=== PATIENT | male | born 1985 | race Two or more races ===

== ENCOUNTER 2020-11-22 14:00 | Emergency (ER) | payer MEDICAID ==
[~2020-11-22] VITALS: Ht 167.6 cm; Wt 59.0 kg
--- NOTE | 2020-11-22 14:06 | NUR ---
DR. BRINK AT BEDSIDE FOR EVAL.
--- NOTE | 2020-11-22 14:08 | NUR ---
PATIENT PROVIDED WITH DRINKING WATER. PATIENT A/OX4, BREATHING EVEN AND UNLABORED, NO SOB NOTED. IN STABLE CONDITION.
--- NOTE | 2020-11-22 14:14 | NUR ---
PATIENT IS INSISTING ON LEAVING. DR. BRINK RE-ASSESSED PATIENT AND OK'D THE PATIENT TO LEAVE. PATIENT IS VERBALLY DISCHARGED BY ER MD. PATIENT REFUSED TO SIGN ANY DISCHARGE PAPERWORK AND LEFT THE FACILITY.
[2020-11-22 14:16] VITALS: BP 127/69
== END 2020-11-22 14:17 | disposition home or self-care (01) ==
LOC: ER 14:03
DX: T40.411A Poisoning by fentanyl or fentanyl analogs, accidental (unintentional), initial encounter (principal); Y92.89 Other specified places as the place of occurrence of the external cause